=== PATIENT | male | born 1995 | race Caucasian/White ===

== ENCOUNTER 2018-12-01 02:49 | Emergency (ER) | payer OTHER ==
--- NOTE | 2018-12-01 03:12 | EDPHY ---
H & P Stated Complaint: M1-SI Source: Patient - Personal History Current Tetanus Diphtheria and Acellular Pertussis (TDAP): Unsure - Medical/Surgical History Hx Asthma: No Hx Chronic Respiratory Disease: No Hx Diabetes: No Hx Cardiac Disease: No Hx Renal Disease: No Hx Cirrhosis: No Hx Alcoholism: No Hx HIV/AIDS: No Hx Splenectomy or Spleen Trauma: No Other PMH: migraines - Social History Smoking Status: Never smoked Time Seen by Provider: 12/01/18 03:10 HPI/ROS: HPI CHIEF COMPLAINT: Suicide ideation. HISTORY OF PRESENT ILLNESS: Patient 23-year-old male presents to the emergency room on M1 hold by [facility]. The patient reports to me that he does suffer from depression he made suicidal statements and got physically and verbally aggressive with his friends in girlfriend. Patient states that he is been upset recently also drinking alcohol. Denies any ingestion. Past Medical History: Depression Past Surgical History: Denies recent surgical history Social History: Alcohol this evening. Denies illicit drugs. [employer] student. Family History: Noncontributory ROS REVIEW OF SYSTEMS: 10 Systems were reviewed and negative with the exception of the elements mentioned in the history of present illness. Exam Constitutional upset, tearful, triage nursing summary reviewed, vital signs reviewed, awake/alert. Eyes normal conjunctivae and sclera, EOMI, PERRLA. HENT normal inspection, atraumatic, moist mucus membranes, no epistaxis, neck supple/ no meningismus, no raccoon eyes. Respiratory clear to auscultation bilaterally, normal breath sounds, no respiratory distress, no wheezing. Cardiovascular rate normal, regular rhythm, no murmur, no edema, distal pulses normal. Gastrointestinal soft, non-tender, no rebound, no guarding, normal bowel sounds, no distension, no pulsatile mass. Genitourinary no CVA tenderness. Musculoskeletal no midline vertebral tenderness, full range of motion, no calf swelling, no tenderness of extremities, no meningismus, good pulses, neurovascularly intact. Skin pink, warm, & dry, no rash, skin atraumatic. Neurologic awake, alert and oriented x 3, AAOx3, moves all 4 extremities equally, motor intact, sensory intact, CN II-XII intact, normal cerebellar, normal vision, normal speech. Psychiatric flat affect, depressed. Suicidal. Heme/Lymph/Immune no lymphadenopathy. Differential Diagnosis: Includes but is not limited to in a particular order underlying depression, substance abuse, mood disorder, suicidal ideation, bipolar disorder. Medical Decision Making: Plan for this patient blood draw for medical clearance , alcohol level, patient on M1 hold by police. Re-evaluation: 0347: Serum alcohol level 240. (Colt Lezama) Constitutional: Initial Vital Signs Temperature (C) 36.5 C 12/01/18 02:55 Heart Rate 84 12/01/18 02:55 Respiratory Rate 16 12/01/18 02:55 Blood Pressure 147/89 H 12/01/18 02:55 O2 Sat (%) 98 12/01/18 02:55 O2 Delivery Mode Room Air Allergies/Adverse Reactions: No Known Allergies Allergy (Verified 12/01/18 03:03) Home Medications: Medication Instructions Recorded Migraine Med 12/01/18 Medical Decision Making Other Provider: I assumed care of the patient at 7:00 a.m. 9:00 a.m.: The patient is no longer intoxicated. He was evaluated by the psychiatric team. The patient denies suicidal ideation and does contract for safety. Collateral information was obtained from the patient's friend and family members. The patient's father is comfortable with him being discharged from the emergency department. The patient does have a relationship with a therapist in [facility] and will reestablish care this week. The patient did present on M1 psychiatric hold however this has been vacated as the patient no longer meets criteria. (Severiano Shaw) - Data Points Laboratory Results: Laboratory Results 12/01/18 03:16 12/01/18 03:16 12/01/18 12/01/18 12/01/18 03:16 03:16 03:16 WBC 6.54 10^3/uL 10^3/uL (3.80-9.50) RBC 5.52 10^6/uL 10^6/uL (4.40-6.38) Hgb 17.4 g/dL g/dL (13.7-17.5) Hct 51.5 % H % (40.0-51.0) MCV 93.3 fL fL (81.5-99.8) MCH 31.5 pg pg (27.9-34.1) MCHC 33.8 g/dL g/dL (32.4-36.7) RDW 12.1 % % (11.5-15.2) Plt Count 246 10^3/uL 10^3/uL (150-400) MPV 8.1 fL L fL (8.7-11.7) Neut % (Auto) 59.9 % % (39.3-74.2) Lymph % (Auto) 29.8 % % (15.0-45.0) [place] % (Auto) 8.0 % % (4.5-13.0) Eos % (Auto) 1.4 % % (0.6-7.6) Baso % (Auto) 0.6 % % (0.3-1.7) Nucleat RBC Rel Count 0.0 % % (0.0-0.2) Absolute Neuts (auto) 3.92 10^3/uL 10^3/uL (1.70-6.50) Absolute Lymphs (auto) 1.95 10^3/uL 10^3/uL (1.00-3.00) Absolute Monos (auto) 0.52 10^3/uL 10^3/uL (0.30-0.80) Absolute Eos (auto) 0.09 10^3/uL 10^3/uL (0.03-0.40) Absolute Basos (auto) 0.04 10^3/uL 10^3/uL (0.02-0.10) Absolute Nucleated RBC 0.00 10^3/uL 10^3/uL (0-0.01) Immature Gran % 0.3 % % (0.0-1.1) Immature Gran # 0.02 10^3/uL 10^3/uL (0.00-0.10) Sodium 145 mEq/L mEq/L (135-145) Potassium 3.8 mEq/L mEq/L (3.5-5.2) Chloride 111 mEq/L H mEq/L (97-110) Carbon Dioxide 24 mEq/l mEq/l (22-31) Anion Gap 10 mEq/L mEq/L (6-14) BUN 10 mg/dL mg/dL (7-23) Creatinine 0.9 mg/dL mg/dL (0.7-1.3) Estimated GFR > 60 Glucose 101 mg/dL H mg/dL (70-100) Calcium 9.1 mg/dL mg/dL (8.5-10.4) Urine Opiates Screen NEGATIVE (NEGATIVE) Urine Barbiturates NEGATIVE (NEGATIVE) Ur Phencyclidine Scrn NEGATIVE (NEGATIVE) Ur Amphetamine Screen NEGATIVE (NEGATIVE) U Benzodiazepines Scrn NEGATIVE (NEGATIVE) Urine Cocaine Screen NEGATIVE (NEGATIVE) U Marijuana (THC) Screen NEGATIVE (NEGATIVE) Ethyl Alcohol 240 mg/dL H mg/dL (0-10) Departure - Departure Disposition: Home, Routine, Self-Care Clinical Impression: Depression, Alcohol intoxication Condition: Good Instructions: Depression (ED) Additional Instructions: 1. Please follow-up with the mental health resources provided in the ED today. 2. [facility] does operate a 22/05 psychiatric crisis unit located at [facility]. The telephone number for the 24 hour crisis center is [phone]. 3. Please return to the ED if you are feeling suicidal, having thoughts of harming yourself/others or should you feel unsafe or have worsening symptoms. Referrals: NONE *PRIMARY CARE P,. [Primary Care Provider] - As per Instructions
[2018-12-01 03:29] LABS: PLATELET COUNT 246 10^3/uL (150-400)
[2018-12-01] MEDS ORDERED: IBUPROFEN 200 MG TAB PO ONE (08:22)
[2018-12-01 09:15] VITALS: BP 128/85
--- NOTE | 2018-12-01 11:04 | ASMTTLCEVL ---
TLC Evaluation - Basic Information Evaluation Start Date and 12/01/2018 07:45 AM Time Hospital Status Answers: M1 Hold 72-hr M1 Hold Start Date 12/01/2018 01:46 AM and Time Narrative Notes: The patient is a 23 y/o male, single, [employer] student, unemployed, with a hx of depression and anxiety. He is living in an apartment in [place], [place]. The patient arrived via EMS on an M1 hold placed by police after patient "Respondent was contacted and admitted to being on top of a apartment building for approximately one hour. Respondent said he was feeling sad and was planning on jumping off the building. Respondent admitted to being intoxicated. Respondent was upset about his life and education path." The patient reported that he exaggerated his statements and behavior due to excessive etoh use. He reported that he had a fight with a peer and later with his significant other both resulting in the patient feeling "hurt." The patient denied suicidal ideation, agrees to keep himself safe, and completed a safety plan that includes re-starting services with his outpatient therapist. This bond writer confirmed the safety plan with the patient's parents; who felt confident in the patient's ability to keep himself safe. He reported that he was deescalated by his father who expressed pride in the patient's achievements and growth. The patient stated, "I've never heard him say anything like that before." He described feeling as though he could always "be better" per his father's perception. The patient stated, "I don't feel like I want my life to end. 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 The patient reported an inconsistent history of outpatient therapy with a private clinician in the community. The patient reported that he contemplated medication treatment in the summer of 2017 when he was prescribed Trazodone and Klonopin, PRN. He did not use medications. The patient reported that a friend by suicide in 2015. The patient reported excessive recreational and social etoh use including 15+ drinks per one drinking occasion and decreased use mid-semester. Additionally, the patient was formerly a member of a fraternity that caused undue stress. Diagnosis History Notes: The patient has a diagnostic hx of anxiety and depression including outpatient treatment. Prior suicide attempts Notes: The patient denied any prior suicide attempts. Prior hospitalizations Notes: The patient denied any prior hospitalizations for mh. Treatment Responses Notes: Unable to assess due to lack of prior hospitalizations for mh. History of violence Notes: The patient denied any homicidal ideation or previous hx of violence. Therapist: Tamara Tarango Psychiatrist: None Medications (name, dosage, route, freq uency) Notes: None Allergies/Reaction Notes: No known allergies Sleep Notes: The patient reported "insomnia;" including an average of 4 hours per night. Appetite Notes: The patient denied changes in appetite including weight loss or gain. Medical/Surgical history Notes: The patient denied any significant medical/surgical hx. Substance use history (frequency, intensity, his tory, duration) Notes: The patient stated he drinks etoh with friends primarily on the weekends and the amount he consumes varies. The patient reported he will drink 15 drinks per drinking occasion often to intoxication. The patient stated that the first time he drank etoh was when he was 17 years old and the last time he drank was 11/30/18. The patient reported excessive drinking as a norm in [email or web address] culture. He reported increased use and the beginning and end of each semester with a decline in use mid-semester. Family composition Notes: The patient was raised in [place], [place]. His parents remain in [place]. He his one of three children; two older sisters. Need for family Answers: Yes participation in patient's care Family psychiatric/substance abuse history Notes: The patient denied any family psychiatric/substance abuse hx. Developmental history Notes: The patient denied any developmental issues or learning disabilities. The patient denied ADD or ADHD. The patient denied any TBIs, concussions, or LOC.The patient denied any physical abuse, emotional abuse, or sexual abuse. The patient endorsed having achieved normal developmental milestones. Abuse concerns Answers: None Marital status/children Notes: The patient is single without children. Living situation Notes: The patient lives in an apartment, off campus, with one roommate. Sexual history/orientation Notes: The patient identifies as heterosexual and is sexually active. Peer support/family strengths Notes: The patient endorsed having a supportive peer group; although he denied "adequate" support. Education level/history Notes: The patient reported having attended high school and some college, bachelors degree in economics at [employer]. Work history Notes: The patient is unemployed. Notes: no known affiliation Legal Notes: The patient denied any legal issues. Yarsani/Spiritual Notes: The patient reported none that would interfere with treatment. The patient reported being raised "worship" but not "believing or practicing." Leisure Notes: The patient reported enjoying "playing video games, hiking/walking, and spending time with his girlfriend." Collateral Notes: The collateral data was obtained from current and previous [facility] ed records/staff, 27-65 M1, and family members: Gustavo Holguin. Patient's strengths Answers: Athletic (Please select at least TWO strengths): Good Friend to Others Honest Insightful Intelligent Responsible/Dependable Supportive/Compassionate Supportive Family TLC Evaluation - Mental Status Exam Appearance: Answers: Appropriate Clean Well Groomed Disheveled Eye Contact: Answers: Appropriate for Culture Good/Direct Mood: Answers: Euthymic Affect: Answers: Appropriate Calm Relaxed Behavior: Answers: Appropriate Cooperative Talkative Speech: Answers: Relevant Logical Clear Coherent Thought Process: Answers: Organized Oriented Goal Oriented Insight: Answers: Good Judgement: Answers: Fair Depression Answers: Sad Mood Signs/Symptoms: Anxiety Signs/Symptoms Answers: Generalized Anxiety Hallucinations: Answers: None Current Stage of Change Answers: Precontemplation Pt reported to have Answers: No suicidal/self-injuring ideation/behavior? Pt reported to be making Answers: No suicidal/self-injuring threats? Pt reported to have Answers: No aggression/assault ideation/behavior? Pt reported to be making Answers: No aggression/assault threats? Pt exhibits inability to Answers: No care for self/grave disability? Ideation/behavior is Answers: No chronic? Patient has a specific Answers: No plan? Pt has access to means to Answers: No execute the plan? Ideation involves Answers: No serious/lethal intent? Ideation has Answers: No delusional/hallucinatory content? History of Answers: Yes suicidal/self-injuring ideation, behavior, or threats? History of Answers: No aggressive/assaultive ideation, behavior, or threats? History of serious Answers: No physical harm to self/others while in treatment setting? TLC Evaluation - Suicide/Homicide Risk Suicide Risk Factors: Answers: Alcohol/Heavy Drug Use Anxiety/Panic, Severe Inadequate Social Support Intoxication Recent of [employer] School Difficulties Homicide/violence risk Answers: Heavy Alcohol Use factors: Current Suicidal Answers: No Ideation? Current Suicidal Ideation Answers: Yes in the Past 48 Hours? Current Suicidal Ideation Answers: Yes in the Past Month? Current Suicidal Answers: No Ideation, Worst Ever? Suicide Internal Answers: Absence of Psychosis Protective Factors: Frustration Tolerance Suicide External Answers: Positive Therapeutic Protective Factors: Relationships Ranking of patient's Answers: Low suicidal risk: Ranking of patient's Answers: Low homicidal risk: TLC Evaluation - Wrap-up BDI Total Score: 4 BDI Question #2 Score: 1 BDI Question #9 Score: 1 BSS Total Score: 0 AXIS I Diagnosis (include DSM-V and ICD-10 codes), must also be entered in [employer], which is the source of truth. Notes: Alcohol Use Disorder, mild 305.00 (F10.10) Unspecified Anxiety Disorder 300.00 (F41.9) Unspecified Depressive Disorder 311 (F32.9) Evaluation End Date and 12/01/2018 11:00 AM Time (HH:RAFFY): Date Signed: 12/01/2018 11:03 AM Electronically Signed By:Laurie Godinez
--- NOTE | 2018-12-01 11:07 | ASMTTCLDSP ---
TLC Discharge Disposition Disposition: Answers: Discharge If Answers: Yes DISCHARGED: Patient/family given suicide hotline info & SAMHSA brochure? Disposition Notes: Notes: The patient was offered voluntary mental health admission yet patient declined. The patient stated commitment or ability to keep self safe and denied thoughts of self harm or harm to others. The patient was given local hotline information and SAMSHA brochure after an attempt. The patient expressed a desire to f/u with his outpatient community therapist. Discharge Concerns/Recommendations: Notes: In consultation with [facility] ED physician, Severiano Shaw MD. Dr. Shaw concurred that the patient does not appear to meet 27-65 criteria requiring psychiatric hospitalization as patient does not appear to be an imminent risk of harm to self/others/gravely disabled due to a mental illness condition. Was patient given the Answers: Not applicable Inpatient Behavioral Health Prohibited Belongings List while in the ED? Date and time M1 hold 12/01/2018 09:00 AM vacated (time format is hh:mm): Type of Hold: Answers: M1/72-hour Hold Hold initiated by: Answers: Police Date Signed: 12/01/2018 11:07 AM Electronically Signed By:Laurie Godinez
== END 2018-12-01 09:26 | disposition home or self-care (01) ==
LOC: EEVIPCON 02:49
DX: F10.129 Alcohol abuse with intoxication, unspecified (principal); F10.14 Alcohol abuse with alcohol-induced mood disorder; Y90.8 Blood alcohol level of 240 mg/100 ml or more; F32.9 Major depressive disorder, single episode, unspecified; R45.851 Suicidal ideations
CPT/HCPCS: 80305; G0480

== ENCOUNTER 2019-02-22 00:22 | Emergency (ER) | payer OTHER ==
[2019-02-22 00:29] VITALS: BP 165/96
--- NOTE | 2019-02-22 00:55 | EDPHY ---
H & P Stated Complaint: Nose bleed for 25 mins, resolved upon arrival, "swallowed alot of blood" Time Seen by Provider: 02/22/19 00:39 HPI/ROS: HPI The patient presents with epistaxis from left naris which has now resolved. It lasted for about 25 min and patient believes he swallowed several blood clots. He packed his nose with some tissues in this eventually stopped the bleeding. He has been sick recently with a runny nose. He has had epistaxis several times before. He does not have any other easy bleeding or bruising. He does not take any anticoagulants. REVIEW OF SYSTEMS 10 systems were reviewed and negative with the exception of the elements mentioned in the history of present illness. PMHx: Epistaxis, migraine-type headache Soc Hx: College student PHYSICAL General Appearance: Alert, no distress Eyes: Pupils equal and round no pallor or injection ENT, Mouth: Left naris without any active bleeding, no clot seen, posterior pharynx is unremarkable, Mucous membranes moist Respiratory: Breathing comfortably Neurological: A&O, moves all extremities Skin: Warm and dry, no rashes Psychiatric: Patient is oriented X 3, there is no agitation Source: Patient Exam Limitations: No limitations - Personal History Current Tetanus Diphtheria and Acellular Pertussis (TDAP): Yes - Medical/Surgical History Hx Asthma: No Hx Chronic Respiratory Disease: No Hx Diabetes: No Hx Cardiac Disease: No Hx Renal Disease: No Hx Cirrhosis: No Hx Alcoholism: No Hx HIV/AIDS: No Hx Splenectomy or Spleen Trauma: No Other PMH: migraines - Social History Smoking Status: Never smoked Constitutional: Initial Vital Signs Temperature (C) 36.7 C 02/22/19 00:25 Heart Rate 78 02/22/19 00:25 Respiratory Rate 18 02/22/19 00:25 Blood Pressure 165/96 H 02/22/19 00:25 O2 Sat (%) 97 02/22/19 00:25 O2 Delivery Mode Room Air Allergies/Adverse Reactions: No Known Allergies Allergy (Verified 02/22/19 00:28) Home Medications: Medication Instructions Recorded Migraine Med 12/01/18 Medical Decision Making Differential Diagnosis: 23-year-old male with 25 min of epistaxis now resolved. He did have transient dizziness which is now resolved. Vital signs are normal. I doubt any significant blood loss that the patient is concerned about this. He has no active bleeding currently. We discussed treatment of epistaxis with Afrin, nasal clamp, Vaseline in the naris, humidifier at home, no nose picking. He will be discharged home. Departure - Departure Disposition: Home, Routine, Self-Care Clinical Impression: Acute anterior epistaxis Condition: Good Instructions: Nosebleed (ED) Additional Instructions: If you have a nose bleed again I recommend that you blow your nose, then use Afrin in your nose, then placed the nasal clamp for 10 min. You may want to put Vaseline or antibiotic ointment inside your nostril and use a humidifier at home. Referrals: ADRIAN DON [Other] - As per Instructions Kiya Hernandez MD [Medical Doctor] - As per Instructions
== END 2019-02-22 01:05 | disposition home or self-care (01) ==
DX: R04.0 Epistaxis (principal)